=== PATIENT | female | born 1960 | race Caucasian/White ===

== ENCOUNTER 2021-01-04 08:03 | Emergency (ER) | payer OTHER, SELFPAY ==
[2021-01-04] VITALS (20 sets, daily range): BP systolic 117–196; BP diastolic 72–133; PULSE 79–97; RESP 10–22; TEMP 36.6; O2SAT 49–100; BMI 34.3
--- NOTE | 2021-01-04 08:07 | XR_ITS ---
PROCEDURE: XR ANKLE RT MIN 3V CLINICAL INDICATION: obvious fx Injury with pain and deformity COMPARISON: No exams were available for comparison FINDINGS: There is ankle fracture dislocation. Oblique fracture of the distal fibula, longitudinal fracture posterior distal tibia, avulsion fracture of the medial malleolus, there is lateral dislocation the talus by 3.8 cm. There is posterior dislocation of the talus by 2 cm. There is overlying soft tissue swelling. IMPRESSION: Ankle fracture dislocation Dictated by: Luis Miguel Kaplan MD 01/04/2021 08:31 Luis Miguel Kaplan MD in [place] 01/04/2021 08:31
[2021-01-04 08:15] LABS: Basophils # 0.1 K/mm3 (0-0.2); Basophils % 1.3 % (0.1-2.0); Eosinophils # 0.3 K/mm3 (0.0-0.4); Eosinophils % 4.1 % (0.1-12.0); Hematocrit 40.3 % (37.0-47.0); Hemoglobin 13.5 g/dL (12.2-16.2); Lymphocytes # 2.7 K/mm3 (0.7-4.5); Lymphocytes % 38.6 % (10-50); Mean Corpuscular HGB Conc 33.5 g/dL (31.8-35.4); Mean Corpuscular Hemoglobin 29.3 pg (27.0-31.2); Mean Corpuscular Volume 87.5 fl (81-99); Mean Platelet Volume 8.2 fl (7.4-10.4); Monocytes # 0.4 K/mm3 (0.1-1.0); Neutrophils # 3.6 K/mm3 (1.8-7.8); Neutrophils % 50.9 % (37.0-80.0); Platelet Count 279 K/mm3 (142-424); Red Blood Count 4.61 M/mm3 (4.20-5.40); Red Cell Distribution Width 13.9 % (11.5-17.5)
[2021-01-04 08:20] LABS: Chloride 98 mmol/L (98-107); Sodium 139 mmol/L (136-145)
[2021-01-04 08:22] LABS: Alanine Aminotransferase 26 U/L (12-78); Aspartate Amino Transferase 25 U/L (14-36); Bilirubin,Total 0.5 mg/dl (0.2-1.3); Blood Urea Nitrogen 14 mg/dl (7-17); Creatinine Clearance Estimated 95 mL/min (50-200); Estimated Glomerular Filt Rate 64 ml/min (>60); GFR (African American) 77 ML/MIN (>60)
[2021-01-04 08:23] LABS: Albumin Level 4.2 g/dl (3.5-5.0); Albumin/Globulin Ratio 1.6 (1.1-1.8); Alkaline Phosphatase 100 U/L (38-126); Anion Gap 8.9 mEq/L (5-15); Calcium 9.9 mg/dl (8.4-10.2); Carbon Dioxide 35 mmol/L (22.0-30.0); Globulin 2.6 g/dL (1.3-3.2); Glucose 121 mg/dl (74-100); Total Protein,Serum 6.8 g/dl (6.3-8.2)
[2021-01-04 08:32] LABS: Activated Partial Thrombo Time 27.7 seconds (22.8-30.6); INR 0.81 (0.9-1.1); Prothrombin Time 9.7 seconds (10.1-12.5)
--- NOTE | 2021-01-04 08:32 | PC.NURSE ---
spoke with Dr Tanner
--- NOTE | 2021-01-04 08:32 | HMH.EDGENADL ---
ED Disposition Clinical Impression: Closed right trimalleolar fracture Qualifiers: Encounter type: initial encounter Qualified Code(s): S82.851A - Displaced trimalleolar fracture of right lower leg, initial encounter for closed fracture Dislocated ankle Qualifiers: Encounter type: initial encounter Laterality: right Qualified Code(s): S93.04XA - Dislocation of right ankle joint, initial encounter Disposition: Home, Self-Care Condition on Discharge: Good Instructions: DI for Acute Pain -- Adult Prescriptions: Cyclobenzaprine HCl [Cyclobenzaprine 5mg Tab] 5 mg PO Q8HP PRN #30 tab PRN Reason: pain/spasm [id number] Ketorolac Tromethamine [Toradol 10mg tablet] 10 mg PO Q6H 5 Days #20 tab Transmission Status: Pending to [id number] Referrals: PCP,No [Primary Care Provider] - - Critical Care Critical Care Time: No Attestation: On 01/04/21, the high probability of a clinically significant, sudden or life threatening deterioration of the following system(s) required my full and direct attention, intervention and personal management. The time I documented below is in addition to time spent performing reported procedures but includes the following listed in this critical care notation. Medical Decision Making - Medical Records Medical records reviewed: Yes: I reviewed the patient's medical records. - Joe Inquiry Pt receiving controlled substance: No Vital Signs: 01/04/21 08:03 01/04/21 09:00 01/04/21 09:10 Temperature 98 F Temperature Source Oral Pulse Rate 90 86 Pulse Rate [Radial] 82 Respiratory Rate 18 16 22 Blood Pressure 165/96 H 158/88 H Blood Pressure [Right Arm] 170/86 H Blood Pressure Mean 119 111 Blood Pressure Mean [Right Arm] 114 Blood Pressure Position Blood Pressure Position [Right Arm] Sitting 02 Sat by Pulse Oximetry 98 97 98 Oxygen Delivery Method Room Air Oxygen Flow Rate (LPM) 01/04/21 09:15 01/04/21 09:16 01/04/21 09:17 Temperature Temperature Source Pulse Rate 87 Pulse Rate [Radial] Respiratory Rate 10 L Blood Pressure 196/115 H Blood Pressure [Right Arm] Blood Pressure Mean Blood Pressure Mean [Right Arm] Blood Pressure Position Sitting Blood Pressure Position [Right Arm] 02 Sat by Pulse Oximetry 99 49 L 98 Oxygen Delivery Method Nasal Cannula Non-Rebreather Simple Mask Oxygen Flow Rate (LPM) 2 10 10 01/04/21 09:19 01/04/21 09:25 01/04/21 09:47 Temperature Temperature Source Pulse Rate 95 H 94 H Pulse Rate [Radial] 89 Respiratory Rate 10 L 10 L 16 Blood Pressure 174/105 H 146/122 H Blood Pressure [Right Arm] 158/88 H Blood Pressure Mean Blood Pressure Mean [Right Arm] 111 Blood Pressure Position Sitting Sitting Blood Pressure Position [Right Arm] Sitting 02 Sat by Pulse Oximetry 98 100 97 Oxygen Delivery Method Nasal Cannula Nasal Cannula Oxygen Flow Rate (LPM) 3 2 - Lab Data Lab Results 01/04/21 08:08: WBC 7.0, RBC 4.61, Hgb 13.5, Hct 40.3, MCV 87.5, MCH 29.3, MCHC 33.5, RDW 13.9, Plt Count 279, MPV 8.2, Neut % (Auto) 50.9, Lymph % (Auto) 38.6, [place] % (Auto) 5.0, Eos % (Auto) 4.1, Baso % (Auto) 1.3, Neut # (Auto) 3.6, Lymph # (Auto) 2.7, [place] # (Auto) 0.4, Eos # (Auto) 0.3, Baso # (Auto) 0.1 01/04/21 08:08: PT 9.7 L, INR 0.81 L, APTT 27.7 01/04/21 08:08: Sodium 139, Potassium 2.9 L*, Chloride 98, Carbon Dioxide 35 H, Anion Gap 8.9, BUN 14, Creatinine 0.90, Estimated Creat Clear 95, Estimated GFR 64, Est GFR ( Amer) 77, Glucose 121 H, Calcium 9.9, Total Bilirubin 0.5, AST 25, ALT 26, Alkaline Phosphatase 100, Total Protein 6.8, Albumin 4.2, Globulin 2.6, Albumin/Globulin Ratio 1.6 01/04/21 08:08: Magnesium 2.1 01/04/21 08:30: Chlamy pneumoniae PCR Not detected, Adenovirus (PCR) Not detected, B. pertussis DNA (PCR) Not detected, Coronavirus OC43 (PCR) Not detected, Coronavirus HKU1 (PCR) Not detected, Coronavirus 229E (PCR) Not detected
[2021-01-04 08:34] LABS: Potassium 2.9 mmoL/L (3.5-5.1)
--- NOTE | 2021-01-04 08:35 | PC.NURSE ---
notified ER MD of potassium 2.9
[2021-01-04 08:43] LABS: Adenovirus,PCR Not Detected (NotDetected); Bordetella Pertussis Not Detected (NotDetected); Chlamydophila Pneumoniae, PCR Not Detected (NotDetected); Coronavirus 19, PCR Not Detected (NotDetected); Coronavirus 229E Not Detected (NotDetected); Coronavirus NL63 Not Detected (NotDetected); Coronavirus OC43 Not Detected (NotDetected); Coronovirus HKU1,PCR Not Detected (NotDetected); Human Metapneumovirus Not Detected (NotDetected); Influenza A, PCR Not Detected (NotDetected); Influenza AH1, 2009 Not Detected (NotDetected); Influenza AH1, PCR Not Detected (NotDetected); Influenza AH3,PCR Not Detected (NotDetected); Influenza B, PCR Not Detected (NotDetected); Mycoplasma Pneumoniae, PCR Not Detected (NotDetected); Parainfluenza 1, PCR Not Detected (NotDetected); Parainfluenza 2, PCR Not Detected (NotDetected); Parainfluenza 3, PCR Not Detected (NotDetected); Parainfluenza 4, PCR Not Detected (NotDetected); Respiratory Syncytial Virus Not Detected (NotDetected); Rhinovirus/Enterovirus Not Detected (NotDetected)
[2021-01-04 09:04] LABS: Magnesium 2.1 mg/dl (1.6-2.3)
--- NOTE | 2021-01-04 09:10 | PC.NURSE ---
started with sedation. pt iv patent.
--- NOTE | 2021-01-04 09:19 | XR_ITS ---
PROCEDURE: XR ANKLE RT 2V CLINICAL INDICATION: post reduction Ankle fracture COMPARISON: CR XR ANKLE RT MIN 3V from 01/04/2021 FINDINGS: There has been interval reduction of the ankle fracture dislocation. Transverse medial malleolar fracture is in good alignment. Small avulsion fracture posterior distal tibia in good alignment. Oblique fracture of the distal fibula is in good alignment with mild posterior displacement by 4 mm. IMPRESSION: Status post reduction of the ankle fracture dislocation Dictated by: Luis Miguel Kaplan MD 01/04/2021 09:36 Luis Miguel Kaplan MD in [place] 01/04/2021 09:36
--- NOTE | 2021-01-04 09:21 | PC.NURSE ---
Rad here for post reduction xray
--- NOTE | 2021-01-04 09:35 | PC.NURSE ---
pt drowsy responds to verbal stimuli.
--- NOTE | 2021-01-04 10:15 | PC.NURSE ---
Lulu called for Dr Tanner advising that ortho office will see her early next week.
--- NOTE | 2021-01-04 11:00 | PC.NURSE ---
pt resting. taking fluids, pt continues to c/o pain rt ankle
--- NOTE | 2021-01-04 12:00 | PC.NURSE ---
pt resting c/o pain rt ankle md aware
--- NOTE | 2021-01-04 13:10 | PC.NURSE ---
posterior splint, sugar tong splint applied to rt ankle
--- NOTE | 2021-01-04 13:45 | PC.NURSE ---
pt given crutches walking instructions. pt having difficulty using crutches. pt was unable to demonstrate use. pt verbalized instructions. pt was able to demonstrate NWB rt leg with walker. states she has access to walker at home
== END 2021-01-04 14:44 | disposition home or self-care (01) ==
PROVIDERS: Emergency Provider Emergency Medicine
DX: S82.391A Other fracture of lower end of right tibia, initial encounter for closed fracture (principal); S93.04XA Dislocation of right ankle joint, initial encounter; W01.0XXA Fall on same level from slipping, tripping and stumbling without subsequent striking against object, initial encounter; Y92.017 Garden or yard in single-family (private) house as the place of occurrence of the external cause; Z20.822 Contact with and (suspected) exposure to COVID-19
CPT/HCPCS: 27788; 29515; 73600; 73610; 80053; 83735; 85025; 85610; 85730; 87581; 87633; 87798; 96365; 96367; 96375; 96376; 99152; 99284; J2405

== ENCOUNTER 2021-01-06 15:15 | Day surgery (SDC) | payer OTHER, SELFPAY ==
[2021-01-06] VITALS (8 sets, daily range): BP systolic 124–158; BP diastolic 77–98; PULSE 80–94; RESP 12–18; TEMP 36.6–36.9; O2SAT 92–99; BMI 34.3
--- NOTE | 2021-01-06 14:35 | XR_ITS ---
PROCEDURE: XR ANKLE RT 2V CLINICAL INDICATION: ankle fracture; splint change after post reduction Follow-up splint placement COMPARISON: CR XR ANKLE RT MIN 3V from 01/04/2021 CR XR ANKLE RT 2V from 01/04/2021 FINDINGS: Trimalleolar fracture dislocation once again noted. The talus is once again displaced laterally and posteriorly. Longitudinal displaced fractures present at the distal fibula. Medial malleolar transverse fracture is noted with lateral displacement. Posterior distal tibial avulsion fracture present and displaced posteriorly by 15 mm. Talus is displaced posteriorly by approximately 2 cm and displaced laterally by 1 cm. There is an overlying splint in place. IMPRESSION: Status post splint placement with fracture dislocation of the ankle with interval development of lateral and posterior displacement of the talus with fractures as described above of the distal fibula, posterior distal tibia, and medial malleolus Dictated by: Luis Miguel Kaplan MD 01/06/2021 15:14 Luis Miguel Kaplan MD in [place] 01/06/2021 15:14
--- NOTE | 2021-01-06 16:59 | XR_ITS ---
PROCEDURE: XR ANKLE RT 2V CLINICAL INDICATION: ORIF RIGHT ANKLE USING C-ARM GUIDANCE COMPARISON: CR XR ANKLE RT 2V from 01/06/2021 FINDINGS: C-arm was utilized for closed reduction the right ankle fracture dislocation. There is good alignment in the AP plane on the final images. There is mild dorsal displacement of the posterior distal tibial fracture and the distal fibular fracture. Fluoroscopy time: 14 seconds IMPRESSION: Status post closed reduction ankle fracture dislocation Dictated by: Luis Miguel Kaplan MD 01/07/2021 08:02 Luis Miguel Kaplan MD in [place] 01/07/2021 08:02
--- NOTE | 2021-01-06 17:30 | HMH.ANESCL ---
[facility] Anesthesia Checklist - Structural Data Admitted From: Home Planned Operative Procedure/s: closed red r ankle Consent for Planned Operative Procedure(s) Verified: Yes - Additional verifications Anesthesia Reactions: No Hx Blood Transfusions: No Blood Transfusion Reaction: No - Airway Assessment C-Spine Mobility Assessed: Yes TMJ Mobility Assessed: Yes Dentition: Good Dentition - Neurological Assessment Level of Consciousness: Awake, Alert, Appropriate - Anesthesia Plan Anesthesia Risk discussed: Yes Anesthesia Plan: Verified ASA Class: II Anesthesia Type: General [facility] History I have reviewed the patient's past medical history: Yes Medical History: Denies:: Cancer, Diabetes Mellitus Type 1, Diabetes Mellitus Type 2, Internal Pacemaker, MRSA, Seizures *Have you ever received a pneumonia vaccine?: Yes *Have you received a flu vaccine this season?: Yes Other Medical History: Denies: Blood Transfusion Reaction Anesthesia experience/problems:: none Other Surgeries: Yes: Other. No: Pacemaker Amputation: No Fractures: Yes - *Social History Smoking Status: Current every day smoker Tobacco Type: cigarettes # Packs/Day (cigarettes): 1 Alcohol Intake: never Substance Use Type: denies use *Occupational Status:: other *Travel in the last 8 weeks: None Family Hx:: No significant family history
--- NOTE | 2021-01-06 17:31 | HMH.ANESI ---
[facility] Anesthesia Record Part I Intake, IV Amount: 500 Estimated blood loss (mL): 0 Urine output (mL): 0 Blood Pressure: 155/85 SaO2: 92 Pulse Rate: 94 Respiratory Rate: 12 Temperature: 97.8 F Patient is:: Awake, Stable Stable to PACU at:: 17:25
--- NOTE | 2021-01-06 17:37 | HMH.OPNOTE ---
Date of procedure: 01/06/21 Pre-op Diagnosis:: trimalleolar fracture-dislocation R ankle Post-op Diagnosis:: trimalleolar fracture-dislocation R ankle Procedure performed:: closed reduction + splint application R ankle fracture-dislocation Surgeon:: Arielle Tanner MD Relocation Manager(s):: Shayna Mendoza ANDROID SOFTWARE ENGINEER:: Stanford Pastor Anesthesia: LMA Estimated blood loss (mL): 0 Clinical Note:: 60-year-old female presents for initial orthopedic evaluation of an injury to the right ankle that was sustained 2 days ago when she stepped into a hole and slipped, twisting her ankle. She had immediate pain and deformity of the ankle was unable to bear weight. She was seen in the ER where fracture?dislocation was diagnosed and closed reduction performed. Post reduction x-rays were taken, but the x-rays were taken with the physician holding the ankle and no splint applied. After the splint was applied the patient had increased pain and says that she has been in severe pain in the last 2 days. No numbness or tingling of the toes. No prior injuries to or surgeries on this ankle before. History is significant for hypercholesterolemia, hypertension. She is not a smoker. BMI 34. Although the fracture was reduced well in the ER, post reduction x-rays were taken prior to splint application. I discussed the patient's case with the nurse in the ER that was present the day of the injury, and she states after reduction and splinting was performed by herself. I feel that in the interim between the reduction and splint application, the ankle redislocated. The patient is simply too swollen to fix today, and additionally has a large fracture blister medially. She will need at least another week of elevation and edema control before surgery can safely be performed. However, she needs to be reduced once more again today. I will take her to the OR this afternoon for close reduction under sedation and splint application. I did offer her the choice of sedation versus intra-articular lidocaine injection with reduction in the office, and she has chosen sedation. I discussed the risks of the procedure with the patient, including inability to reduce the ankle, propagation/worsening of the fracture, and risks of sedation including respiratory distress. The patient vocalized understanding and provided informed consent for the procedure. Operative findings:: trimalleolar fracture-dislocation R ankle Operative note:: The patient was identified in preoperative holding and the right ankle signed by myself. Consent was reviewed with the patient and all questions answered. She was then taken to the operating room, where LMA was used to administer general anesthesia. Once the patient was asleep, consent was performed, identifying the correct patient, correct procedure, and correct site. Splint was removed from the right lower extremity. Large fracture blisters were seen over the medial aspect of the ankle, which were drained using a single poke hole from an 18-gauge needle, with manual pressure expressing the clear fracture fluid. Xeroform was placed over these wounds, with a thin layer of 4 x 4 and Seble wrap. Next, C-arm was used to localize the fracture/dislocation, which was trimalleolar and classification. The ankle was reduced with longitudinal traction and upwards pressure pulled on the foot, pulling anteriorly directed force on the ankle, reducing the talus under the plafond and. Reduction was confirmed on C arm and splint applied. A well-padded splint was applied using 4 inch web roll, followed by 4 inch plaster with both a posterior mold and a stirrup. The plaster was well molded to the ankle and held until hardened. Post reduction post splinting x-rays were obtained with C arm, which confirmed good reduction/alignment of the ankle fracture. The patient was then extubated and taken to PACU in good condition. She tolerated this procedure well with no complications. Tourniquet time (mi
--- NOTE | 2021-01-06 18:01 | PC.NURSE ---
1755-pt transferred to post op at this time, vss, pt stable
[2021-01-07 11:17] VITALS: BP 145/86; PULSE 80; TEMP 36.9
--- NOTE | 2021-01-07 11:17 | HMH.ANESII ---
[facility] Anesthesia Record Part II Discharge Time: 17:55 Destination: Surgical Day Care (OP Surgery) PACU nurse assessment reviewed?: Yes Patient Condition:: Good Anesthesia Complications:: None Swallowing reflex intact?: Yes Cyanosis?: No Blood Pressure: 145/86 Pulse Rate: 80 Temperature: 98.5 F Mental Status: Alert & Oriented Pain level:: 0 Nausea and/or vomitting:: None Intake, IV Amount: 0
== END 2021-01-06 18:25 ==
LOC: RAD 16:16 → OR 01-07 12:46
PROVIDERS: PCP Internal Medicine; Visit Provider Orthopaedic Surgery
PROC: (CPT 27818; principal; 2021-01-06 16:00)
DX: S82.851A Displaced trimalleolar fracture of right lower leg, initial encounter for closed fracture (principal); Z79.899 Other long term (current) drug therapy; Z72.0 Tobacco use
CPT/HCPCS: 27818; 29515; 73600; 76000

== ENCOUNTER 2021-01-13 17:08 | Day surgery (SDC) | payer OTHER, SELFPAY ==
[2021-01-13] VITALS (16 sets, daily range): BP systolic 135–168; BP diastolic 70–90; PULSE 81–100; RESP 16–20; TEMP 36.9–42.7; O2SAT 92–97; BMI 34.3
--- NOTE | 2021-01-13 15:26 | XR_ITS ---
PROCEDURE: XR ANKLE RT MIN 3V CLINICAL INDICATION: RT ankle; IN SPLINT Fracture COMPARISON: CR XR ANKLE RT MIN 3V from 01/04/2021 CR XR ANKLE RT 2V from 01/04/2021 CR XR ANKLE RT 2V from 01/06/2021 FINDINGS: A splint is in place. Ankle fracture dislocation once again noted. There is posterior displacement of the talus and mild lateral displacement of the talus. Distal fibular fracture noted with dorsal displacement by approximately 8 mm and dorsal angulation also with mild lateral angulation of the distal fracture fragment. The ankle mortise is widened. There is posterior displacement of the talus by 2 cm and lateral displacement of the fibula by 10 mm as well as lateral displacement of the talus by 18 mm. Overall no significant change from 01/06/2021 posterior distal talus avulsion fracture is noted with posterior displacement by 11 mm. IMPRESSION: No significant change right ankle fracture dislocation with trimalleolar fracture Dictated by: Luis Miguel Kaplan MD 01/13/2021 16:38 Luis Miguel Kaplan MD in [place] 01/13/2021 16:38
--- NOTE | 2021-01-13 16:55 | XR_ITS ---
PROCEDURE: XR ANKLE RT 2V CLINICAL INDICATION: C-ARM CASE FOR RIGHT ANKLE BY DR CASTELAN Follow-up external fixation COMPARISON: CR XR ANKLE RT MIN 3V from 01/04/2021 CR XR ANKLE RT 2V from 01/04/2021 CR XR ANKLE RT 2V from 01/06/2021 CR XR ANKLE RT MIN 3V from 01/13/2021 FINDINGS: 1923 hours S/p placement of external fixator at the proximal tibia and calcaneus. There remains dorsal subluxation of the talus by approximately 10 mm and dorsal displacement the distal fibular fracture by 5 mm and dorsal displacement of the distal tibial fracture by 6 mm. Other findings:None. IMPRESSION: Status post external fixator placement for ankle fracture dislocation as described above. Dictated by: Luis Miguel Kaplan MD 01/14/2021 05:46 Luis Miguel Kaplan MD in [place] 01/14/2021 05:46
--- NOTE | 2021-01-13 18:13 | HMH.ANESCL ---
[facility] Anesthesia Checklist - Patient Identification Patient Identification: Arm Band - Structural Data Admitted From: Home Planned Operative Procedure/s: Closed reduction, application of external fixation device Right Ankle Consent for Planned Operative Procedure(s) Verified: Yes Verified Documents: Surgical Consent, History and Physical - NPO Status Verified Time NPO: 07:00 - Additional verifications Anesthesia Reactions: No Hx Blood Transfusions: No Blood Transfusion Reaction: No - Airway Assessment C-Spine Mobility Assessed: Yes (mp2) TMJ Mobility Assessed: Yes Dentition: Good Dentition - Neurological Assessment Level of Consciousness: Awake, Alert - Anesthesia Plan Anesthesia Risk discussed: Yes Anesthesia Plan: Verified ASA Class: II Anesthesia Type: General [facility] History Medical History: Reports:: Hyperlipidemia, Hypertension Denies:: Cancer, Diabetes Mellitus Type 1, Diabetes Mellitus Type 2, Internal Pacemaker, MRSA, Seizures *Have you ever received a pneumonia vaccine?: Yes *Have you received a flu vaccine this season?: Yes Other Medical History: Denies: Blood Transfusion Reaction Anesthesia experience/problems:: nac Other Surgeries: Yes: Hysterectomy-Total, Other. No: Pacemaker Amputation: No Fractures: Yes - *Social History Smoking Status: Current every day smoker Tobacco Type: cigarettes # Packs/Day (cigarettes): 1 Alcohol Intake: never Substance Use Type: denies use *Occupational Status:: disabled Housing: house *Travel in the last 8 weeks: None Family Hx:: No significant family history
[2021-01-13 18:20] LABS: Coronavirus 19 IgG Antibody Positive (Negative); Coronavirus 19 IgM Antibody Negative (Negative)
--- NOTE | 2021-01-13 19:00 | XR_ITS ---
PROCEDURE: XR ANKLE RT 2V CLINICAL INDICATION: s/p right ankle ex fix application COMPARISON: No exams were available for comparison FINDINGS: Fluoroscopy time: 1.3 minutes External fixator device with fluoroscopic guidance with proximal aspect at the proximal tibial region 2 screws in the distal aspect at the calcaneal area with improvement in the talar subluxation. Trimalleolar fracture noted with some minimal posterior subluxation of the talus. IMPRESSION: Status post external fixator device placement as described above Dictated by: Luis Miguel Kaplan MD 01/13/2021 19:25 Luis Miguel Kaplan MD in [place] 01/13/2021 19:25
--- NOTE | 2021-01-13 19:31 | PC.NURSE ---
1927-radiology at bedside
--- NOTE | 2021-01-13 19:52 | XR_ITS ---
PROCEDURE: XR ANKLE RT 2V CLINICAL INDICATION: Follow-up external fixation COMPARISON: CR XR ANKLE RT 2V from 01/04/2021 CR XR ANKLE RT 2V from 01/06/2021 CR XR ANKLE RT 2V from 01/13/2021 CR XR ANKLE RT MIN 3V from 01/13/2021 FINDINGS: 1957 hours. Lateral view the right ankle once again shows dorsal subluxation of the talus by approximately 9 mm. Distal fibular fracture and distal tib fib fracture also noted with dorsal displacement. IMPRESSION: No change fracture subluxation the ankle dorsal displacement of the talus Dictated by: Luis Miguel Kaplan MD 01/14/2021 05:37 Luis Miguel Kaplan MD in [place] 01/14/2021 05:37
--- NOTE | 2021-01-13 19:57 | PC.NURSE ---
1943-pt transferred to post op at this time, vss, pt stable, will continue to monitor
--- NOTE | 2021-01-13 20:01 | SUR.PHASEII ---
1946-pt reports pain increasing at this time to 06/06- no po medication orders given per MD- notified MD that pt's pain was increasing-MD ordered for pt to have percocet 10mg po xonce prior to discharge and for the lateral xray to right ankle to be repeated 1953-med w/Percocet 10mg PO xonce, pt rates pain 06/06, vss will continue to monitor 1958-radiology at bedside to repeat lateral xray to right ankle, pt eating pb and crackers and drinking alessandra mist w/out difficulty
--- NOTE | 2021-01-13 22:10 | HMH.OPNOTE ---
Date of procedure: 01/13/21 Pre-op Diagnosis:: R ankle trimalleolar fracture-dislocation Post-op Diagnosis:: R ankle trimalleolar fracture-dislocation Procedure performed:: RIGHT LOWER EXTREMITY: 1) closed reduction of ankle fracture-dislocation 2) uniplanar external fixator application Surgeon:: Arielle Tanner MD Administrative Staff Supervisor(s):: PJ Walker SHOT LIGHTER:: Tacos Dugan Anesthesia: GETA Estimated blood loss (mL): 5 Clinical Note:: 60-year-old female with right ankle fracture?dislocation, date of injury 01/04/2021; reduced in ER that day with loss of reduction presumed to have occurred prior to splint application. Reduced once more by myself 01/06/21; splinted with posterior mold and stirrup. Reduction has failed once more, with dislocation of the talus posteriorly. Given the repeat instability of the ankle and the failure of the talus is a centered under the plafond, which is adding to prolong soft tissue swelling, I recommend stabilization with close reduction and external fixator placement. Her fracture needs to be fixed soon as possible, and I believe the posterior malleolar fracture does need to be fixed in addition to the distal fibula and medial malleolus. However, her soft tissue envelope is in poor condition and is not amenable to surgery at this time. She has severe soft tissue swelling with fracture blisters across both anterior and medial aspects of the ankle. External fixator application will allow the fracture to remain reduced/stabilized and allow the soft tissues to cool off prior to definitive treatment. The risks of ex-fix application were discussed with the patient and her brother, who is at bedside; risks of bleeding, infection, persistent pain/swelling, and risks of anesthesia were discussed. The patient vocalized understanding, informed consent obtained. Will proceed to the OR urgently today. Operative findings:: Glendora Valdez 3 ex-fix system was used, with the following components: pins: tibia = 5 x 180mm, 5 x 200mm apex pins (2) calcaneus = 5 x 250mm transfix pin (1) bars: 8 x 500mm (2) from tibia to calcaneus Operative note:: The patient was identified in preoperative holding and the right leg signed by myself; the ankle was still splinted. I reviewed the consent with the patient and her family and answered all questions. She was then taken to the operating room and placed supine on the OR table. 900mg clindamycin were infused intravenously and general anesthesia induced. Once the patient was asleep, the splint was removed from the right ankle and the right leg prepped and draped in the usual sterile fashion from the upper thigh to the toes. Timeout was performed, identifying the correct patient, correct procedure, and correct site. The procedure was begun by using the C arm to identify the fracture site at the right ankle. Trimalleolar fracture-dislocation was confirmed. A Brainly Valdez 3 external fixator system was used for this case. The first pin placed was a calcaneus pin, which was a 5 x 250 mm transfix pin, which was centrally threaded. This was held over the skin over the lateral calcaneus until the desired starting point was found, at which time the pin was used to frazier the skin and placed under power through the center of the calcaneus. Once the pin had been completely fixed with the central threads through the middle of the calcaneus, it was attached from the power source. Next 2 pins were placed in the proximal tibia, each measuring 5mm diameter, one 180 mm long and the other 200mm long. These were distally threaded apex pins and were placed around 3 to 4 cm apart in the proximal tibia, well distal to the tubercle and far below the capsule so as not to be placed intra-articularly. These were placed under power, also under direct visualization with C arm, and were started just medial to the tibial crest over the anterior tibia. They were placed bicortically. Once both tibial pins had been placed, inga
== END 2021-01-13 20:26 | disposition home or self-care (01) ==
LOC: SDC 17:09
PROVIDERS: PCP Internal Medicine; Visit Provider Orthopaedic Surgery
PROC: (CPT 27818; principal; 2021-01-13 18:00)
DX: S82.851A Displaced trimalleolar fracture of right lower leg, initial encounter for closed fracture (principal); W17.2XXA Fall into hole, initial encounter; Z79.899 Other long term (current) drug therapy
CPT/HCPCS: 27818; 20690; 73600; 73610; 76000; 86328; 96374; C1713; J2405

== ENCOUNTER → 2021-01-20 13:52 | Outpatient (CLI) | payer OTHER, SELFPAY ==
--- NOTE | 2021-01-20 13:56 | CT_ITS ---
PROCEDURE: CT ANKLE RT WO CON CLINICAL HISTORY: RT ankle fracture/preoperative planning COMPARISON: CR XR ANKLE RT 2V from 01/13/2021 TECHNIQUE: Axial images obtained with sagittal and coronal reformats. All CT scans at the facility use one or more dose reduction, viz: automated exposure control, ma/kV adjustment per patient size (including targeted exams where dose is matched to indication, i.e. head), or iterative reconstruction technique. FINDINGS: There is a trimalleolar fracture. Mildly displaced fracture involves the distal fibula 2.8 cm proximal to the tip of the fibula with 8 mm lateral and 5 mm posterior displacement of the distal fracture fragment. Transverse fracture involves the base of the medial malleolus with 3 mm lateral displacement. Comminuted longitudinal oriented fracture involves the posterior distal tibia with 5 mm dorsal displacement. The talus is displaced posteriorly by 8 mm the and laterally by 8 mm. There is diffuse soft tissue swelling. The ankle mortise is widened. There is diffuse soft tissue swelling about the ankle. Artifact is present from external fixator device within the body of the calcaneus. A small calcific density is present along the anterior aspect of the distal tibia and may represent a small avulsion displaced avulsion fragment from the medial malleolar fracture. IMPRESSION: Displaced trimalleolar fracture as described above with widened ankle mortise with posterior and lateral displacement of the talus with associated soft tissue swelling. Please see above for details Dictated by: Luis Miguel Kaplan MD 01/21/2021 09:11 Luis Miguel Kaplan MD in [place] 01/21/2021 09:11
== END ==
PROVIDERS: PCP Internal Medicine; Visit Provider Orthopaedic Surgery
DX: S82.851A Displaced trimalleolar fracture of right lower leg, initial encounter for closed fracture (principal)
CPT/HCPCS: 73700

== ENCOUNTER 2021-02-06 07:55 | Inpatient (IN) | payer OTHER, SELFPAY ==
[2021-02-06] VITALS (28 sets, daily range): BP systolic 86–188; BP diastolic 45–98; PULSE 90–170; RESP 19–46; TEMP 36.6–36.9; O2SAT 89–97; BMI 34.3; BMI 33.0
--- NOTE | 2021-02-06 | IR_ITS ---
APPROVED REPORT Patient Location: Inpatient Flight Nurse: EDD Doe RT (R) PROCEDURES Left heart catheterization Left ventriculogram Selective coronary angiogram Placement of intra-aortic balloon pump INDICATION Acute anterior myocardial infarction, Cardiogenic shock accompanied by respiratory failure Informed consent was obtained prior to the procedure. COMPLICATIONS None Estimated Blood Loss: less than 10ml TECHNIQUE 1% lidocaine used to anesthetize the right groin, the right femoral artery was accessed via the Salinger technique and a 5 Salvadorean sheath was placed in the right femoral artery. A JL4 JR4 catheter was used to perform left heart catheterization left ventriculogram and selective coronary angiography. At the end of the procedure it was decided to proceed with the emergency balloon pump due to patient's hypoxemia respiratory extremis acute systolic congestive heart failure accompanied by large left pleural effusion. A balloon pump catheter was opened and placed in the sterile field and hooked up to the intra-aortic balloon pump machine. The 5 Salvadorean sheath was exchanged for the 8 Salvadorean balloon pump sheath. The balloon pump was sterilely prepped and ready to be inserted into the patient when it was decided at the last second to see if Dr. Alves was available for a stat thoracentesis. Patient was found to have nonocclusive coronary artery disease with severe acute LV dysfunction with a large anterior apical and inferoapical akinetic area consistent with acute Takotsubo cardiomyopathy. Her left ventricular end-diastolic pressure was critically elevated at 60 mmHg. Initially a balloon pump was going to be placed to help unload the left ventricle however if Dr. Alves was available for staff thoracentesis we could avoid heparin probable endotracheal intubation and balloon pump. Dr. Alves was paged stat to the Television Install[employer]per and he immediately responded and graciously proceeded with emergent thoracentesis which produced 1400 cc of fluid. Patient was also given 80 mg of IV Lasix and during the thoracentesis was able to diurese 1 L of urine. Because patient had to be set up it was decided to place a Perclose device prior to the thoracentesis therefore the groin was reprepped gloves were changed the sheath was removed and good hemostasis was achieved using Perclose device. At this point the sterile balloon pump which was set up and ready to be installed into the patient was discarded. Upon removal of the large volume thoracentesis and the 1 L of diuresis patient had significant improvement and we were able to avoid endotracheal intubation, the heparin drip and the balloon pump. Once stable patient was transferred to the postop holding area for further postop care with plans to admit to the stepdown unit ANGIOGRAPHIC RESULTS The left main artery Normal The left anterior descending artery Normal The circumflex artery Normal The right coronary artery Normal The [place] ventriculogram reveals Severe left ventricular dilatation with large anterior apical and inferoapical akinetic aneurysmal segment with ejection fraction of 15% The left ventricular end-diastolic pressure Critically elevated at 60 mmHg IMPRESSION Normal coronary arteries Acute Takotsubo cardiomyopathy/acute stress cardiomyopathy Acutely decompensated congestive heart failure likely causing the rare isolated left pleural effusion Severe left ventricular dysfunction Severely elevated LVEDP Preparation for intra-aortic balloon pump which was aborted at the last second just prior to insertion into the patient PLAN 1. Supportive care 2. ZOHRA inhibitors for afterload reduction 3. Avoid beta-blockers at this
--- NOTE | 2021-02-06 | US_ITS ---
PROCEDURE: US THORACENTESIS CLINICAL INDICATION: COMPARISON: No exams were available for comparison FINDINGS: Moderate left pleural effusion is noted. The thoracentesis procedure was performed by IMPRESSION: Thoracentesis procedure was performed by Dr. Lo Dictated by: Mireille Tomlin 02/07/2021 10:30 Mireille Tomlin in [place] 02/07/2021 10:30
--- NOTE | 2021-02-06 08:00 | ECG_ITS ---
APPROVED REPORT Exam: Resting ECG HR:129 bpm ECG Measurements Heart Rate 129 AXES NM 164 P 40 QRSd 62 QRS 6 QT 252 T -27 QTc 369 Conclusion Undetermined rhythm Low voltage QRS Nonspecific ST and T wave abnormality Abnormal ECG Electronically signed by : Ernesto Peacock, 02/08/2021 11:39:19
--- NOTE | 2021-02-06 08:07 | PC.NURSE ---
called respiratory for abg and bipap
--- NOTE | 2021-02-06 08:10 | HMH.EDGENADL ---
ED Disposition Clinical Impression: Elevated troponin, Recurrent left pleural effusion Respiratory failure with hypoxia Qualifiers: Chronicity: acute Qualified Code(s): J96.01 - Acute respiratory failure with hypoxia Chest pain Qualifiers: Chest pain type: unspecified Qualified Code(s): R07.9 - Chest pain, unspecified Disposition: Admitted As Inpatient Condition on Discharge: Serious - Critical Care Critical Care Time: No Attestation: On 02/06/21, the high probability of a clinically significant, sudden or life threatening deterioration of the following system(s) required my full and direct attention, intervention and personal management. The time I documented below is in addition to time spent performing reported procedures but includes the following listed in this critical care notation. Medical Decision Making - Medical Records Medical records reviewed: Yes: I reviewed the patient's medical records. MR Comment: Reviewed discharge summary from [facility] portal, patient was admitted 01/25/2021 through 02/05/2021. She was admitted there for repair of her right ankle fracture after 2 surgical repairs at this facility. The first was a closed reduction, second was external fixator. She was unhappy with her treatment here and is referred to [facility] for further treatment. Course there was complicated by hypoxic respiratory failure, fever, suspected chemical aspiration pneumonia, atrial fibrillation, left pleural effusion status post thoracentesis, possible seizure. Had echocardiogram, CTA. Reviewed final orthopedic clinic note from Dr. Donohue from this facility. - Joe Inquiry Pt receiving controlled substance: No Vital Signs: 02/06/21 07:55 02/06/21 08:30 02/06/21 08:35 Temperature 98.4 F Temperature Source Oral Pulse Rate 123 H Pulse Rate [Right] 132 H Respiratory Rate 30 H 22 Blood Pressure 157/94 H Blood Pressure [Right Arm] 188/81 H Blood Pressure Mean [Right Arm] 116 02 Sat by Pulse Oximetry 95 97 92 L Oxygen Delivery Method Nasal Cannula Nasal Cannula Nasal Cannula Oxygen Flow Rate (LPM) 5 4 5 - Lab Data Lab Results 02/06/21 08:11: Specimen Source Left radial, O2 % 5 lpm nc, ABG pH 7.50 H, ABG pCO2 28.7 L, ABG pO2 105.6 H, ABG HCO3 21.9 L, ABG Total CO2 22.8 L, ABG O2 Saturation 98, ABG Base Excess -1.3, Luis Miguel Test Acceptable 02/06/21 08:12: Sodium 134 L, Potassium 4.4, Chloride 99, Carbon Dioxide 23, Anion Gap 16.4 H, BUN 9, Creatinine 0.70, Estimated Creat Clear 122, Estimated GFR 85, Est GFR ( Amer) 103, Glucose 254 H, Calcium 9.3, Total Bilirubin 0.8, AST 50 H, ALT 32, Alkaline Phosphatase 193 H, Troponin I 1.30 H, Total Protein 7.3, Albumin 3.8, Globulin 3.5 H, Albumin/Globulin Ratio 1.1 02/06/21 08:12: Lactate 4.8 H 02/06/21 08:12: WBC 13.3 H, RBC 3.80 L, Hgb 10.4 L, Hct 33.4 L, MCV 87.9, MCH 27.3, MCHC 31.1 L, RDW 14.2, Plt Count 829 H, MPV 7.9, Neut % (Auto) 83.5 H, Lymph % (Auto) 10.2, Boundary % (Auto) 3.9, Eos % (Auto) 1.7, Baso % (Auto) 0.8, Neut # (Auto) 11.1 H, Lymph # (Auto) 1.4, Boundary # (Auto) 0.5, Eos # (Auto) 0.2, Baso # (Auto) 0.1 02/06/21 08:12: NT-Pro-B Natriuret Pep 6140 H Result diagrams: 02/06/21 08:12 02/06/21 08:12 Orders (Tests/Meds): ED MEDICATIONS Discontinued Medications Generic Name Dose Route Start Last Admin Trade Name Shyamq PRN Reason Stop Dose Admin Albuterol/Ipratropium 3 ml 02/06/21 08:13 02/06/21 08:35 Ipratropium/Albuterol 3 Ml Neb IH 02/06/21 08:14 3 ml ONCE ONE Administration Aspirin 324 mg 02/06/21 08:57 02/06/21 09:00 Aspirin 81mg Chewable Tablet PO 02/06/21 08:58 324 mg ONCE ONE Administration Methylprednisolone Sodium Succinate 125 mg 02/06/21 08:12 02/06/21 08:25 Methylprednisolone Sod Succ 125mg Vial IV 02/06/21 08:13 125 mg ONCE ONE Administration ORDERS Category Date Time Status Consult to Cardiology [CONS] Routine Cons 02/06/21 08:55 Active Covid-19 Aleksandr
--- NOTE | 2021-02-06 08:12 | XR_ITS ---
PROCEDURE: XR CHEST PORTABLE CLINICAL HISTORY: soa COMPARISON: No exams were available for comparison FINDINGS: There is moderate to large left pleural effusion with adjacent compressive atelectasis. Background of chronic interstitial changes. Right basal atelectasis. Cardiac margins are obscured by the presence of the left pleural effusion. Vascular calcification is noted. Visualized osseous structures are unremarkable. IMPRESSION: Moderate to large left effusion with adjacent compressive atelectasis. Right basal atelectasis. Dictated by: Mireille Tomlin 02/06/2021 08:32 Mireille Tomlin in [place] 02/06/2021 08:32
--- NOTE | 2021-02-06 08:21 | PC.NURSE ---
resp here for abg
[2021-02-06 08:29] LABS: Basophils # 0.1 K/mm3 (0-0.2); Basophils % 0.8 % (0.1-2.0); Eosinophils # 0.2 K/mm3 (0.0-0.4); Eosinophils % 1.7 % (0.1-12.0); Hematocrit 33.4 % (37.0-47.0); Hemoglobin 10.4 g/dL (12.2-16.2); Lymphocytes # 1.4 K/mm3 (0.7-4.5); Lymphocytes % 10.2 % (10-50); Mean Corpuscular HGB Conc 31.1 g/dL (31.8-35.4); Mean Corpuscular Hemoglobin 27.3 pg (27.0-31.2); Mean Corpuscular Volume 87.9 fl (81-99); Mean Platelet Volume 7.9 fl (7.4-10.4); Monocytes # 0.5 K/mm3 (0.1-1.0); Monocytes % 3.9 % (1.7-9.3); Neutrophils # 11.1 K/mm3 (1.8-7.8); Neutrophils % 83.5 % (37.0-80.0); Platelet Count 829 K/mm3 (142-424); Red Cell Distribution Width 14.2 % (11.5-17.5); White Blood Count 13.3 K/mm3 (4.8-10.8)
[2021-02-06 08:36] LABS: Alanine Aminotransferase 32 U/L (12-78); Albumin Level 3.8 g/dl (3.5-5.0); Albumin/Globulin Ratio 1.1 (1.1-1.8); Alkaline Phosphatase 193 U/L (38-126); Anion Gap 16.4 mEq/L (5-15); Aspartate Amino Transferase 50 U/L (14-36); Bilirubin,Total 0.8 mg/dl (0.2-1.3); Blood Urea Nitrogen 9 mg/dl (7-17); Calcium 9.3 mg/dl (8.4-10.2); Carbon Dioxide 23 mmol/L (22.0-30.0); Chloride 99 mmol/L (98-107); Creatinine Clearance Estimated 122 mL/min (50-200); Estimated Glomerular Filt Rate 85 ml/min (>60); GFR (African American) 103 ML/MIN (>60); Globulin 3.5 g/dL (1.3-3.2); Glucose 254 mg/dl (74-100); Potassium 4.4 mmoL/L (3.5-5.1); Sodium 134 mmol/L (136-145); Total Protein,Serum 7.3 g/dl (6.3-8.2)
[2021-02-06 08:43] LABS: Lactic Acid 4.8 mmol/L (0.7-2.1)
[2021-02-06 08:48] LABS: ABG Base Excess -1.3 mmol/L (-2.4-2.3); ABG HCO3 21.9 mmhg (22.0-26.0); ABG Oxygen Saturation 98 % (90-100); ABG PCO2 28.7 mmhg (35.0-45.0); ABG PO2 105.6 mmhg (80-100); ABG TCO2 22.8 mmhg (23-27)
[2021-02-06 08:50] LABS: Allen's Test Acceptable; Source Left Radial
--- NOTE | 2021-02-06 08:52 | PC.NURSE ---
Critical trop 1.30, md aware.
--- NOTE | 2021-02-06 09:10 | PC.NURSE ---
MD MADE AWARE OF CRITICAL LABS RELATED TO POSSIBLE NEED FOR SEPSIS BOLUS. MD REPORTED TO WAIT FOR CARDIOLOGY TO BE CONSULTED PRIOR TO INITIATING A SEPSIS BOLUS. CARDIOLOGY HAS BEEN NOTIFIED FOR A NEED OF A CONSULT
--- NOTE | 2021-02-06 09:11 | PC.NURSE ---
Called Dr Bravo for soncult on patient
--- NOTE | 2021-02-06 09:15 | PC.NURSE ---
bipap not needed at this time per MD after pt improvement
[2021-02-06 09:20] LABS: NT Pro Brain Natriuretic Pep. 6140 pg/mL (0-125)
--- NOTE | 2021-02-06 09:21 | PC.NURSE ---
Dr Pena speaking with Dr Bravo.
--- NOTE | 2021-02-06 09:35 | PC.NURSE ---
Pt placed in gown. Discussed with pt about heart cath and the plan. Consent obtained, placed with chart.
--- NOTE | 2021-02-06 09:41 | PC.NURSE ---
Belonging placed in belonging bag and placed with pt for transfer
--- NOTE | 2021-02-06 09:42 | PC.NURSE ---
speaking with Sharif Godoy for admission
--- NOTE | 2021-02-06 10:29 | PC.NURSE ---
Ceasar from production laborer here for pt.
--- NOTE | 2021-02-06 10:32 | P.CONPHA_ITS ---
[facility] Pharmacy VTE Monitoring - Patient Demographics Admission date: 02/06/21 Report Date: 02/06/21 Time: 10:32 Allergies/Adverse Reactions: Patient Allergies ceftriaxone [From Rocephin] Allergy (Verified 02/06/21 08:21) Penicillins Allergy (Verified 01/13/21 17:30) Height: 1.63 m Weight: 90.718 kg Patient Problems: Current Active Problems Respiratory failure with hypoxia (Acute) Elevated troponin (Acute) Recurrent left pleural effusion (Acute) Chest pain (Acute) - VTE Risk Labs: VTE Related Lab Results Hgb 10.4 g/dL (12.2-16.2) L 02/06/21 08:12 Hct 33.4 % (37.0-47.0) L 02/06/21 08:12 Plt Count 829 K/mm3 (142-424) H 02/06/21 08:12 BUN 9 mg/dl (7-17) 02/06/21 08:12 Creatinine 0.70 mg/dl (0.52-1.04) 02/06/21 08:12 Estimated Creat Clear 122 mL/min (50-200) 02/06/21 08:12 - Prophylaxis VTE Prophylaxis Ordered?: Yes Types of VTE Prophylaxis: TEDS Knee High Location of Applied Device: Bilateral Lower Extremeties
--- NOTE | 2021-02-06 10:33 | HMH.CNCARD ---
<Pamela Watkins - Last Filed: 02/06/21 11:09> History of Present Illness Consult date: 02/06/21 Requesting physician: Scooter Pena Consult reason: chest pain, shortness of breath Chief complaint: SOA History of present illness: This is a 60 year old white female brought into the ED via ambulace for SOA. Pt states that she was admitted to [facility] for 2-3 weeks for a crush injury to the RLE. She had surgery for this injury and is in a ortho boot. she states she was released from [facility] yesterday. She states she has been having SOA and pressure in the center of her chest since being admitted to [facility]. it got worse once she was released from [facility] and got severe. this radiates to her back. severe pressure. she cannot lie flat. she had runs of PAfib while admitted to [facility]. She can barely breathe when talking. she states she feels like she is dying. the pressure in her chest is associated with nausea which started this morning, SOA and diaphoresis. Pt is tachycardic, tachypneic, and hypertensive as well as diaphoretic. she complains of heart racing and feels like she is in afib. [facility] History I have reviewed the patient's past medical history: Yes Medical History: Reports:: Atrial Fibrillation, Chronic Obstructive Pulmonary Disease (COPD), Hyperlipidemia, Hypertension Denies:: Cancer, Diabetes Mellitus Type 1, Diabetes Mellitus Type 2, Internal Pacemaker, MRSA, Seizures *Have you ever received a pneumonia vaccine?: Yes *Have you received a flu vaccine this season?: No Other Medical History: Denies: Blood Transfusion Reaction Other Surgeries: Yes: Hysterectomy-Total, Other. No: Pacemaker Amputation: No Fractures: Yes - *Social History Smoking Status: Current every day smoker Tobacco Type: cigarettes # Packs/Day (cigarettes): 1 Alcohol Intake: never Substance Use Type: denies use *Occupational Status:: disabled Housing: house *Travel in the last 8 weeks: None Family Hx:: No significant family history Meds Home Medications Medication Instructions Recorded Confirmed Type Atorvastatin Calcium [Lipitor 10mg 10 mg PO HS 01/04/21 02/06/21 History Tablet*] Gabapentin [Gabapentin 300mg Cap] 100 mg PO TID 01/04/21 02/06/21 History Losartan/Hydrochlorothiazide 1 tab PO DAILY 01/04/21 02/06/21 History [Losartan-Hctz 100-25 mg Tab] Oxycodone HCl/Acetaminophen 1 each PO Q6H PRN #20 tab 01/04/21 02/06/21 Rx [Oxycodone-Acetaminophen 5-325] Potassium Chloride 10 meq PO DAILY 01/04/21 02/06/21 History Acetaminophen 500 mg PO Q6H PRN 02/06/21 02/06/21 History Duloxetine HCl 60 mg PO DAILY 02/06/21 02/06/21 History Ibuprofen 400 mg PO Q6H PRN 02/06/21 02/06/21 History Lansoprazole 30 mg PO DAILY 02/06/21 02/06/21 History Metaxalone 800 mg PO Q6H 02/06/21 02/06/21 History Sennosides/Docusate Sodium 1 each PO BID 02/06/21 02/06/21 History [Senexon-S 50-8.6 mg Tablet] Tiotropium [place] [Spiriva 4 gm IH DAILY 02/06/21 02/06/21 History Respimat] methocarbamoL [Methocarbamol] 750 mg PO Q6H PRN 02/06/21 02/06/21 History Allergies Allergy/AdvReac Type Severity Reaction Status Date / Time Sulfa (Sulfonamide Allergy Intermediate Rash Verified 02/06/21 13:19 Antibiotics) ceftriaxone [From Rocephin] Allergy Verified 02/06/21 08:21 Penicillins Allergy Verified 01/13/21 17:30 Exam Vital signs and Labs for Last 24 Hours: Temp Pulse Resp BP Pulse Ox 98.4 F 113 H 24 151/92 H 92 L 02/06/21 07:55 02/06/21 09:34 02/06/21 09:34 02/06/21 09:34 02/06/21 09:34 Laboratory Results - last 24 hr 02/06/21 08:11: Specimen Source Left radial, O2 % 5 lpm nc, ABG pH 7.50 H, ABG pCO2 28.7 L, ABG pO2 105.6 H, ABG HCO3 21.9 L, ABG Total CO2 22.8 L, ABG O2 Saturation 98, ABG Base Excess -1.3, Luis Miguel Test Acceptable 02/06/21 08:12: Sodium 134 L, Potassium 4.4, Chloride 99, Carbon Dioxide 23, Anion Gap 16.4 H, BUN 9, Creatinine 0.70, Estimated Creat Clear 122, Estimated GFR 85, Est GFR ( Amer) 103, Glucose 254 H, Calcium 9.3, Total Bilirubin 0
--- NOTE | 2021-02-06 11:06 | CA_ITS ---
APPROVED REPORT EXAM: Comprehensive 2D, Doppler, and color-flow Echocardiogram Gi Technician: [id number] Enamorado, RVS Ht: 5 ft 4 in Wt: 200lbs BSA: 1.96 BP: 158/90 mmHg Indications: Pleural effusion, COPD, CP, SOA, smoker Echo Enhancing Agent Comments: Technically difficult exam -Patient in constant motion seated upright throughout 2D Dimensions IVSd 0.95 cm LVEF (Visual) 37.90 % PWd 0.83 cm LVDd 4.75 cm LVDs 3.88 cm M-Mode Dimensions LA Diam 3.43 cm (1.9-4.0) Ao Diam 3.20 cm (2.0-3.7) EPSs 0.61 cm LV Diastology E Decel Time 70.00 (160-240 msec) E/A Ratio 1.95 MED E' 6.20 (< 7 cm/sec) MED A' 9.90 cm/s E'/MED E' Ratio 17.89 (>14) LAT E' 12.50 (<10 cm/sec) LAT A' 13.80 cm/s E/LAT E' Ratio 8.87 (>14) Aortic Valve AO Peak GR. 4.70 mmHg Mitral Valve MV E Max Russell. 111.00 (40-130 cm/s) MV A Velocity 57.00 (40-130 cm/s) E/A Ratio 1.95 MV Decel. Time 70.00 (160-240 ms) MV PHT 21.00 ms Pulmonary Valve PV Peak Velocity 101.00 (50-150 cm/s) Tricuspid Valve TR P. Velocity 260.00 cm/s RAP Estimate 10.00 mmHg RVSP 37.10 mmHg Left Ventricle Left atrium is mildly enlarged, left ventricle is normal size, there is mild concentric left ventricular hypertrophy, there is severely reduced left ventricular systolic function, visually estimated ejection fraction approximately 25%, there is marked hypokinesis involving mid to distal septum, anterior, apex and anterior apical wall. Diastolic parameters are inconclusive. Right Ventricle Right atrium and right ventricle are normal size and contractility. Aortic Valve Aortic valve is minimally thickened and fibrosed, there is no aortic stenosis or aortic insufficiency. Mitral Valve Mitral valve leaflets are minimally thickened, there is mild mitral regurgitation. Tricuspid Valve Tricuspid grossly normal, there is mild tricuspid regurgitation, tricuspid regurgitation jet velocity is inadequate for calculation of the right ventricular systolic pressure. Pulmonic Valve Pulmonic valve is poorly visualized. Great Vessels Aortic root is normal size. Pericardium No significant pericardial effusion noted. Conclusion 1. Mildly enlarged left atrium, normal left ventricular size, mild concentric left ventricular hypertrophy, severely reduced left ventricular systolic function, visually estimated ejection fraction 25% with multiple segmental wall motion abnormality as described above. 2. Mild mitral and tricuspid regurgitation. 3. No significant pericardial effusion noted. Electronically signed by : Malcolm Olmos, 02/06/2021 14:52:28
[2021-02-06 12:02] LABS: ABG Base Excess -0.8 mmol/L (-2.4-2.3); ABG HCO3 24.7 mmhg (22.0-26.0); ABG Oxygen Saturation 91 % (90-100); ABG PCO2 44.7 mmhg (35.0-45.0); ABG PH 7.36 mmol/L (7.35-7.45); ABG PO2 63.3 mmhg (80-100); ABG TCO2 26.1 mmhg (23-27)
[2021-02-06 12:03] LABS: Allen's Test N; Oxygen 100 %; Source A LINE
[2021-02-06 12:21] LABS: Reflex Lactic Add Lactic Reflex
[2021-02-06 12:29] LABS: Microscopic, Urine URINE MICROSCOPIC (MICROSCOPIC)
[2021-02-06 12:55] LABS: Appearance,Urine CLEAR (Clear); Bilirubin,Urine Negative (Negative); Blood, Urine TRACE-I (Negative); Color,Urine YELLOW (Yellow); Glucose,Urine (UA) Negative (Negative); Ketones,Urine 2+ (Negative); Leukocyte Esterase,Urine Negative (Negative); Nitrate,Urine Negative (Negative); PH,Urine 6.5 (5.0-8.5); Protein,Urine 1+ (Negative); Specific Gravity, Urine 1.025 (1.005-1.030); Urobilinogen,Urine 0.2 EU/dl (0.2)
[2021-02-06 12:57] LABS: Squamous Epithelial Cell,Urine Occasional #/hpf (0-5)
--- NOTE | 2021-02-06 13:11 | XR_ITS ---
PROCEDURE: XR CHEST PORTABLE CLINICAL HISTORY: Post Thora COMPARISON: CR XR CHEST PORTABLE from 02/06/2021 FINDINGS: Mild cardiomegaly is noted. Central pulmonary vasculature is within normal limits. There is decrease in the left-sided pleural effusion with adjacent compressive atelectasis compared to the prior study. No lobar consolidation or pneumothorax. No acute bony abnormalities. IMPRESSION: Decrease in the size of the left pleural effusion compared to the prior study. Dictated by: Mireille Tomlin 02/07/2021 10:57 Mireille Tomlin in [place] 02/07/2021 10:57
--- NOTE | 2021-02-06 13:12 | HMH.PROC ---
[facility] Procedure Note Procedure Note:: Left thoracentesis: Pulmonary was called as concern for potential decompensation given large left-sided pleural effusion in the setting of her Takotsubo cardiomyopathy. Patient was sedated and the procedure performed in emergent fashion no consent was obtained. A time out was performed and the chest x-ray was reviewed, the appropriate side was confirmed and marked. My hands were washed immediately prior to the procedure. I wore a surgical cap, mask with protective eyewear, sterile gown and sterile gloves throughout the procedure. Patient was patient upright with the help of the nursing staff. The patient was prepped and draped in a sterile manner using chlorhexidine scrub after the appropriate level was percussed and confirmed by ultrasound. 1% lidocaine was used to anesthesize the skin, subcutaneous tissue, superior aspect of the rib periosteum and parietal pleura. A finder needle was then introduced over the superior aspect of the rib to locate the pleural fluid. A 10-blade scalpel was used to gordo the skin at the insertion site. The [id number] needle was then introduced through the skin incision into the pleural space using negative aspiration pressure and the red colometric indicator to confirm appropriate positioning of the needle. The thoracentesis catheter was then threaded without difficulty. 1400 ml of straw colored fluid was removed without difficulty. The catheter was then removed. No immediate complications were noted during the procedure. A post-procedure chest x-ray is pending at the time of this note. The fluid will be sent for studies routine studies along with cytology estimated blood loss is 5cc. Patient tolerated the procedure well with no complications. We will follow with repeat chest x-ray and pleural fluid studies. Patient was also initiated on DuoNebs every 6 hours scheduled along with ceftriaxone and azithromycin for possible community-acquired pneumonia pending work-up.
--- NOTE | 2021-02-06 13:40 | PC.WOUNDNOTE ---
right ankle. Lateral 10cm long. Medial was 18cm long.
[2021-02-06 13:46] LABS: RBC,Body Fluid < 10 cells/uL (< 10 X 10^3); TNC,Body Fluid 1065 cells/uL (< 1000)
[2021-02-06 13:47] LABS: Appearance,Body Fld. Hazy; Source, Body Fld. Pleural Fluid; Volume,Body Fld. 62 mL
[2021-02-06 14:01] LABS: Mononuclear WBCs,Body Fluid 78 %; Polynuclear WBC,Body Fluid 22 %
--- NOTE | 2021-02-06 14:03 | PC.NURSE ---
BP 114/69. Nitro gtt decreased to 10mcg/min (3mL/hr).
[2021-02-06 15:13] LABS: Chloride 96 mmol/L (98-107); Potassium 3.4 mmoL/L (3.5-5.1); Sodium 136 mmol/L (136-145)
[2021-02-06 15:15] LABS: Alanine Aminotransferase 28 U/L (12-78); Blood Urea Nitrogen 9 mg/dl (7-17); Creatinine Clearance Estimated 118 mL/min (50-200); Estimated Glomerular Filt Rate 85 ml/min (>60); GFR (African American) 103 ML/MIN (>60)
[2021-02-06 15:16] LABS: Albumin Level 3.9 g/dl (3.5-5.0); Albumin/Globulin Ratio 1.1 (1.1-1.8); Alkaline Phosphatase 209 U/L (38-126); Anion Gap 13.4 mEq/L (5-15); Aspartate Amino Transferase 42 U/L (14-36); Bilirubin,Total 0.6 mg/dl (0.2-1.3); Calcium 9.2 mg/dl (8.4-10.2); Carbon Dioxide 30 mmol/L (22.0-30.0); Globulin 3.6 g/dL (1.3-3.2); Glucose 177 mg/dl (74-100); Total Protein,Serum 7.5 g/dl (6.3-8.2)
[2021-02-06 15:24] LABS: Lactate Dehydrogenase 236 U/L (313-618)
--- NOTE | 2021-02-06 16:30 | PC.NURSE ---
BP 145/86. Nitro gtt increased to 20mcg/min (6mL/hr).
[2021-02-06 16:53] LABS: POC Glucose,Bedside 164 (70-110)
--- NOTE | 2021-02-06 17:00 | PC.NURSE ---
1704: Notified Dr. Bravo that pt's HR is sustaining 150-170s. Nitro gtt is currently @ 20mcg/min. SBP 120-140. Received new order for STAT EKG that was read by ED MD Pena and reveals Afib with RVR. Dr. Bravo ordered the following: Lasix 80mg IV NOW x 1 dose, give Digoxin 0.25mg IV NOW x 1 dose, STOP Nitro gtt, start Nipride gtt (keep SBP around 110), give Amio bolus, start Amio maintenance after bolus, and hook pt up to ZOLL. All orders faxed to pharmacy. 1735: Lasix 80 IV given. Digoxin 0.25mg IV given 1741: Amio bolus started (150mg over 10min) 1748: Nipride gtt started @ 1 mcg/kg/min (27mL/hr) 1751: Amio maintenance gtt started @ 1mg/min (33mL/hr) 1755: BP 87/45. Nipride gtt decreased to 0.5mcg/kg/min (13.1mL/hr) 1800: BP 120/66. Nipride gtt increased to 0.6mcg/kg/min (15.7mL/hr) 1810: BP 110/69 1815: Dr. Bravo updated by phone. He ordered to call cathlab team in for balloon pump insertion. Notified boardinghouse keeper (Bonnie Baker RN).
--- NOTE | 2021-02-06 17:09 | ECG_ITS ---
APPROVED REPORT Exam: Resting ECG HR:174 bpm ECG Measurements Heart Rate 174 AXES QRSd 76 QRS 7 QT 278 T 133 QTc 473 Conclusion Atrial fibrillation with rapid ventricular response Septal infarct, age undetermined T wave abnormality, consider lateral ischemia or electrolyte disturbance Abnormal ECG Electronically signed by : Ernesto Peacock, 02/08/2021 11:38:19
--- NOTE | 2021-02-06 19:12 | PC.NURSE ---
1844: called son (Edil [phone]) to receive verbal consent by phone for cathlab procedure. He agreed and gave verbal consent. power plant operators supervisor (Roro Baker RN) was the 2nd RN witness. Son asked that Dr. Bravo call him prior to the procedure. Called Dr. Bravo and gave him son's name and number. [facility], greenhouse or nursery transplanter (Roro Baker RN), Luis Lara RN, and Emelia Thomas. Pt hooked to Zoll the entire time. Amio gtt and Nipride gtts infusing. Pt A&O. [facility], updated Christopher Parra and Toon Sadler that son would like to speak to Dr. Bravo. Left chart in cathlab with pt. Gave report to Lucía Philip RN @ 1909.
--- NOTE | 2021-02-06 20:08 | PC.NURSE ---
Pt back from blood bank laboratory technologist per Tarah Philip RN and Renee Pastor RN
--- NOTE | 2021-02-06 20:30 | PC.NURSE ---
Patient started on heparin gtt at 1200 units/hr per cathlab staff and Dr. Bravo. PTT ordered for baseline and 6 hours after per protocol. Pharmacist at [facility] contacted and stated 1200 units/hr was appropriate to start and would follow PTT results for any needed adjustments.
--- NOTE | 2021-02-06 20:49 | HMH.HP ---
*Admission Date: 02/06/21 *Chief complaint: cardiomyopathy,atrial fibrillation,pleural effusion *History of present illness: Patient is a 60-year-old white female who was admitted earlier today from the emergency department. She is recently back from the [facility], groggy from anesthesia, so history is obtained from ER physician. Patient is status post a right ankle fracture. She underwent two procedures here, was subsequently transferred to [facility]. Her course there was characterized by postoperative hypoxic failure, possible aspiration, atrial fibrillation. Patient presented to the ER earlier today with chest pain and dyspnea. Her initial work-up showed a large pleural effusion on the left, elevated troponin. Patient was initially taken to the Api Architect where she was found to have a diminished EF, elevated LVEDP. Findings were thought to represent a Takotsubo cardiomyopathy. Patient was also taken for thoracentesis. Approximately 1400 cc of straw-colored fluid was taken from the left chest. Patient subsequently developed a tachyarrhythmia, atrial fib flutter RVR. Patient was then subsequently taken to the Api Architect for a balloon pump insertion. After arrival to the floor she has been clinically improving. [facility] History Medical History: Reports:: Atrial Fibrillation, Chronic Obstructive Pulmonary Disease (COPD), Diabetes Mellitus Type 2, Hyperlipidemia, Hypertension Denies:: Cancer, Diabetes Mellitus Type 1, Internal Pacemaker, MRSA, Seizures *Have you ever received a pneumonia vaccine?: No *Have you received a flu vaccine this season?: No Other Medical History: Denies: Blood Transfusion Reaction Other Surgeries: Yes: Hysterectomy-Total, Other. No: Pacemaker Amputation: No Fractures: Yes - *Social History Smoking Status: Current every day smoker Tobacco Type: cigarettes # Packs/Day (cigarettes): 1 Alcohol Intake: never Substance Use Type: denies use *Occupational Status:: employed Housing: house *Travel in the last 8 weeks: None Family Hx:: Diabetes, Hyperlipidemia Review of Systems - Review of Systems Review of systems:: unable to obtain - *Neurologic Reports abnormal walking (due to RLE injury), Reports weakness Meds Home Medications Medication Instructions Recorded Confirmed Type Atorvastatin Calcium [Lipitor 10mg 10 mg PO HS 01/04/21 02/06/21 History Tablet*] Gabapentin [Gabapentin 300mg Cap] 100 mg PO TID 01/04/21 02/06/21 History Losartan/Hydrochlorothiazide 1 tab PO DAILY 01/04/21 02/06/21 History [Losartan-Hctz 100-25 mg Tab] Oxycodone HCl/Acetaminophen 1 each PO Q6H PRN #20 tab 01/04/21 02/06/21 Rx [Oxycodone-Acetaminophen 5-325] Potassium Chloride 10 meq PO DAILY 01/04/21 02/06/21 History Acetaminophen 500 mg PO Q6H PRN 02/06/21 02/06/21 History Duloxetine HCl 60 mg PO DAILY 02/06/21 02/06/21 History Ibuprofen 400 mg PO Q6H PRN 02/06/21 02/06/21 History Lansoprazole 30 mg PO DAILY 02/06/21 02/06/21 History Metaxalone 800 mg PO Q6H 02/06/21 02/06/21 History Sennosides/Docusate Sodium 1 each PO BID 02/06/21 02/06/21 History [Senexon-S 50-8.6 mg Tablet] Tiotropium [place] [Spiriva 4 gm IH DAILY 02/06/21 02/06/21 History Respimat] methocarbamoL [Methocarbamol] 750 mg PO Q6H PRN 02/06/21 02/06/21 History Allergies Allergy/AdvReac Type Severity Reaction Status Date / Time Sulfa (Sulfonamide Allergy Intermediate Rash Verified 02/06/21 13:19 Antibiotics) ceftriaxone [From Rocephin] Allergy Verified 02/06/21 08:21 Penicillins Allergy Verified 01/13/21 17:30 Exam Vital signs and Labs for Last 24 Hours: Temp Pulse Resp BP Pulse Ox 97.9 F 166 H 44 H 110/66 90 L 02/06/21 13:47 02/06/21 18:30 02/06/21 18:30 02/06/21 18:30 02/06/21 18:30 Laboratory Results - last 24 hr 02/06/21 08:11: Specimen Source Left radial, O2 % 5 lpm nc, ABG pH 7.50 H, ABG pCO2 28.7 L, ABG pO2 105.6 H, ABG HCO3 21.9 L, ABG Total CO2 22.8 L, ABG O2 Saturation 98, ABG Base Excess
[2021-02-06 21:08] LABS: Activated Partial Thrombo Time 75.2 seconds (22.8-30.6)
[2021-02-06 21:14] LABS: POC Glucose,Bedside 185 (70-110)
--- NOTE | 2021-02-06 22:09 | PC.NURSE ---
received call from dr. phipps for patient update. discussed rhythm changes, heart rate, blood pressure, urine output. new order received and faxed to pharmacy.
[2021-02-07] VITALS (58 sets, daily range): BP systolic 97–159; BP diastolic 54–90; PULSE 71–123; RESP 13–23; TEMP 36.4–36.9; O2SAT 82–105
--- NOTE | 2021-02-07 00:08 | PC.NURSE ---
dr. phipps notified of decreased urine output, no new orders received at this time.
--- NOTE | 2021-02-07 00:19 | PC.NURSE ---
2030 heparin dosage, documentation, pharmacy consult and ordering of ptts done by sofiya powerhouse oiler.
--- NOTE | 2021-02-07 00:52 | PC.NURSE ---
0000 amiodarone drip decreased to .5 mg/hr per protocol
--- NOTE | 2021-02-07 02:28 | PC.NURSE ---
2030 assessment complete, sheath site for balloon pump clean,dry and intact. all cap refills <3, all pulses including left radial and right pedal + 2. balloon pump frequency 1:1
[2021-02-07 02:32] LABS: Activated Partial Thrombo Time 39.1 seconds (22.8-30.6)
--- NOTE | 2021-02-07 02:39 | PC.NURSE ---
pharmacy called regarding ptt results, order received to increase to 1600 units and hour and repeat ptt in 6 hrs.
[2021-02-07 05:46] LABS: POC Glucose,Bedside 149 (70-110)
[2021-02-07 06:33] LABS: Basophils % 0.1 % (0.1-2.0); Eosinophils % 0.1 % (0.1-12.0); Hematocrit 32.8 % (37.0-47.0); Hemoglobin 10.5 g/dL (12.2-16.2); Lymphocytes # 1.5 K/mm3 (0.7-4.5); Lymphocytes % 11.2 % (10-50); Mean Corpuscular Hemoglobin 27.5 pg (27.0-31.2); Mean Platelet Volume 8.3 fl (7.4-10.4); Monocytes # 0.8 K/mm3 (0.1-1.0); Monocytes % 5.7 % (1.7-9.3); Neutrophils # 11.4 K/mm3 (1.8-7.8); Neutrophils % 82.9 % (37.0-80.0); Platelet Count 663 K/mm3 (142-424); Red Blood Count 3.81 M/mm3 (4.20-5.40); Red Cell Distribution Width 14.5 % (11.5-17.5); White Blood Count 13.8 K/mm3 (4.8-10.8)
--- NOTE | 2021-02-07 06:35 | XR_ITS ---
PROCEDURE: XR CHEST PORTABLE CLINICAL HISTORY: balloon pump placement COMPARISON: CR XR CHEST PORTABLE from 02/06/2021 CR XR CHEST PORTABLE from 02/06/2021 FINDINGS: The presence of artifact over the left hemithorax slightly limits evaluation. The cardiomediastinal silhouette and pulmonary vascularity are within normal limits. Small to moderate left effusion with adjacent compressive atelectasis, unchanged compared to the most recent prior study. No lobar consolidation or pneumothorax. Mild cardiomegaly is noted. IMPRESSION: No significant interval change within the limitations of the study. Dictated by: Mireille Tomlin 02/07/2021 11:15 Mireille Tomlin in OV 02/07/2021 11:15
[2021-02-07 06:51] LABS: Anion Gap 7.4 mEq/L (5-15); Blood Urea Nitrogen 16 mg/dl (7-17); Calcium 8.7 mg/dl (8.4-10.2); Carbon Dioxide 35 mmol/L (22.0-30.0); Chloride 95 mmol/L (98-107); Creatinine Clearance Estimated 91 mL/min (50-200); Estimated Glomerular Filt Rate 64 ml/min (>60); GFR (African American) 77 ML/MIN (>60); Glucose 146 mg/dl (74-100); Potassium 3.4 mmoL/L (3.5-5.1); Sodium 134 mmol/L (136-145)
--- NOTE | 2021-02-07 06:54 | PC.NURSE ---
received call from dr. phipps for patient status update. vitals signs, heart rhythm and urine output discussed. new orders received.
[2021-02-07 07:22] LABS: ABG Base Excess 3.4 mmol/L (-2.4-2.3); ABG HCO3 26.7 mmhg (22.0-26.0); ABG Oxygen Saturation 90 % (90-100); ABG PCO2 35.4 mmhg (35.0-45.0); ABG PO2 56.5 mmhg (80-100); ABG TCO2 27.8 mmhg (23-27)
--- NOTE | 2021-02-07 09:16 | HMH.PNCARD ---
Subjective Date: 02/07/21 Time: 09:16 Principal diagnosis: Cardiogenic shock, Takotsubo cardiomyopathy Interval history: 60-year-old white female lying in bed with complaint of back pain and right leg pain. Balloon pump continues at one-to-one ratio. Systolic blood pressure 120-140 bpm with pulse rate 110 to 130 bpm. Patient denies any recent loss of family member. The most stressful event was the ankle injury and subsequent hospitalization/surgery at recently. Discussed with Dr. Bravo this morning who contacted [facility] for transfer. Patient has tentatively been accepted. Exam Vital signs and Labs for Last 24 Hours: Temp Pulse Resp BP Pulse Ox 98.5 F 105 H 16 145/90 H 94 L 02/07/21 08:00 02/07/21 08:00 02/07/21 08:00 02/07/21 08:00 02/07/21 08:00 Laboratory Results - last 24 hr 02/06/21 08:12: NT-Pro-B Natriuret Pep 6140 H 02/06/21 09:32: Urine Color Yellow, Urine Appearance Clear, Urine pH 6.5, Ur Specific [place] 1.025, Urine Protein 1+, Urine Glucose (UA) Negative, Urine Ketones 2+, Urine Blood Trace-i, Urine Nitrate Negative, Urine Bilirubin Negative, Urine Urobilinogen 0.2, Ur Leukocyte Esterase Negative, Urine RBC 3-5, Urine WBC 3-5, Ur Squamous Epith Cells Occasional, Urine Bacteria None 02/06/21 11:59: Specimen Source A line, O2 % 100, ABG pH 7.36, ABG pCO2 44.7, ABG pO2 63.3 L, ABG HCO3 24.7, ABG Total CO2 26.1, ABG O2 Saturation 91, ABG Base Excess -0.8, Luis Miguel Test N 02/06/21 12:53: Fluid Source Pleural fluid, Fluid Volume 62, Fluid Appearance Hazy, Fluid RBC (Auto) < 10, Fld Tot Nucleated Cell 1065, Fld Polynuclear WBCs % 22, Fld Mononuclear WBCs % 78 02/06/21 14:50: Lactate 1.0 02/06/21 14:50: Sodium 136, Potassium 3.4 L D, Chloride 96 L, Carbon Dioxide 30 D, Anion Gap 13.4, BUN 9, Creatinine 0.70, Estimated Creat Clear 118, Estimated GFR 85, Est GFR ( Amer) 103, Glucose 177 H D, Calcium 9.2, Total Bilirubin 0.6, AST 42 H, ALT 28, Alkaline Phosphatase 209 H, Lactate Dehydrogenase 236 L, Total Protein 7.5, Albumin 3.9, Globulin 3.6 H, Albumin/Globulin Ratio 1.1 02/06/21 16:27: POC Glucose 164 H 02/06/21 19:25: Specimen Source a line, O2 % 4lpm, ABG pH 7.50 H, ABG pCO2 35.4, ABG pO2 56.5 L, ABG HCO3 26.7 H, ABG Total CO2 27.8 H, ABG O2 Saturation 90, ABG Base Excess 3.4 H 02/06/21 20:25: APTT 75.2 H* D 02/06/21 21:05: POC Glucose 185 H 02/07/21 02:03: APTT 39.1 H D 02/07/21 05:31: POC Glucose 149 H 02/07/21 05:34: WBC 13.8 H, RBC 3.81 L, Hgb 10.5 L, Hct 32.8 L, MCV 86.0, MCH 27.5, MCHC 32.0, RDW 14.5, Plt Count 663 H, MPV 8.3, Neut % (Auto) 82.9 H, Lymph % (Auto) 11.2, [place] % (Auto) 5.7, Eos % (Auto) 0.1, Baso % (Auto) 0.1, Neut # (Auto) 11.4 H, Lymph # (Auto) 1.5, [place] # (Auto) 0.8, Eos # (Auto) 0.0, Baso # (Auto) 0.0 02/07/21 05:34: Sodium 134 L, Potassium 3.4 L, Chloride 95 L, Carbon Dioxide 35 H, Anion Gap 7.4, BUN 16 D, Creatinine 0.90 D, Estimated Creat Clear 91, Estimated GFR 64, Est GFR ( Amer) 77 D, Glucose 146 H, Calcium 8.7 I & O for Last 24 hours: Intake & Output 02/04/21 02/05/21 02/06/21 02/07/21 11:59 11:59 11:59 11:59 Intake Total 435 / 435 Output Total 4510 / 4510 Balance -4075 / -4075 Weight 200 lb 192 lb 3 oz Microbiology Reports for the Last 24 Hours: Microbiology 02/06/21 12:53 Thoracic Fluid Gram Stain - Final 02/06/21 08:30 Nasopharyngeal Coronavirus COVID-19 PCR - Final - *Routine Respiratory Exam Present: CTA bilaterally - *Routine Cardiovascular Exam Present: tachycardia, irregularly irregular - *Routine Extremities Exam Absent: cyanosis, clubbing, edema Progress Note: A&P (1) SOB (shortness of breath) Status: Acute (2) Paroxysmal atrial fibrillation Status: Acute (3) Sinus tachycardia Status: Acute (4) HTN (hypertension) Status: Acute (5) HLD (hyperlipidemia) Status: Acute (6) Foot injury Status: Acute (7) Recent surgical procedure on lower extremity Status: Acute (8) Ple
--- NOTE | 2021-02-07 09:25 | HMH.PHAHEP ---
[facility] Pharmacy Heparin Dosing - Demographic Data Admission date:: 02/06/21 Date: 02/07/21 Time: 09:25 Allergies/Adverse Reactions: Allergies Allergy/AdvReac Type Severity Reaction Status Date / Time Sulfa (Sulfonamide Allergy Intermediate Rash Verified 02/06/21 13:19 Antibiotics) ceftriaxone [From Rocephin] Allergy Verified 02/06/21 08:21 Penicillins Allergy Verified 01/13/21 17:30 Height: 1.63 m Weight: 87.2 kg - Indication Medication therapy:: Heparin Patient Problems: Current Active Problems Respiratory failure with hypoxia (Acute) Elevated troponin (Acute) Recurrent left pleural effusion (Acute) Chest pain (Acute) SOB (shortness of breath) (Acute) Atypical angina (Acute) Paroxysmal atrial fibrillation (Acute) Sinus tachycardia (Acute) HTN (hypertension) (Acute) HLD (hyperlipidemia) (Acute) Foot injury (Acute) Recent surgical procedure on lower extremity (Acute) Elevated troponin (Acute) Pleural effusion (Acute) Cardiomyopathy (Acute) Takotsubo cardiomyopathy (Acute) Cardiogenic shock (Acute) CVA?: No Bleeding problem?: No Kidney disease?: No SD?: No Desired PTT range:: 50-70 seconds Comments:: 50-75 - Labs Anticoagulation Lab Results:: 02/07/21 05:34 Hgb 10.5 L Hct 32.8 L Plt Count 663 H - Monitoring Dose Monitor 1 Date: 02/06/21 Time: 20:25 PTT Result:: 75.2 Infusion Rate:: PATIENT RECEIVED A BOLUS OF 3000 UNITS AND 5000 UNITS. HEPARIN DRIP STARTED AT 24 ML/HR (1200 UNITS/HR). Dose Monitor 2 Date: 02/07/21 Time: 02:03 PTT Result:: 39.1 Infusion Rate:: INCREASE RATE TO 32 ML/HR (1600 UNITS/HR) Dose Monitor 3 Date: 02/07/21 Time: 09:00 PTT Result:: 44.9 Infusion Rate:: RECOMMENDED GIVING ADDITIONAL BOLUS OF HEPARIN 3000 UNITS AND INCREASE DRIP RATE TO 35 ML/HR (1750 UNITS/HR). RECHECK IN 6 HOURS. Dose Monitor 4 Date: 02/07/21 Time: 16:00 PTT Result:: 76.9 Infusion Rate:: DECREASED DOSE OF HEPARIN TO 1650 UNITS/HR (33 ML/HR). Dose Monitor 5 Date: 02/07/21 Time: 22:00 - Core Measures Is INR > or = 2 at discharge?: No Most Recent Labs:: Laboratory Results - last 24 hr 02/06/21 08:12: NT-Pro-B Natriuret Pep 6140 H 02/06/21 09:32: Urine Color Yellow, Urine Appearance Clear, Urine pH 6.5, Ur Specific [place] 1.025, Urine Protein 1+, Urine Glucose (UA) Negative, Urine Ketones 2+, Urine Blood Trace-i, Urine Nitrate Negative, Urine Bilirubin Negative, Urine Urobilinogen 0.2, Ur Leukocyte Esterase Negative, Urine RBC 3-5, Urine WBC 3-5, Ur Squamous Epith Cells Occasional, Urine Bacteria None 02/06/21 11:59: Specimen Source A line, O2 % 100, ABG pH 7.36, ABG pCO2 44.7, ABG pO2 63.3 L, ABG HCO3 24.7, ABG Total CO2 26.1, ABG O2 Saturation 91, ABG Base Excess -0.8, Luis Miguel Test N 02/06/21 12:53: Fluid Source Pleural fluid, Fluid Volume 62, Fluid Appearance Hazy, Fluid RBC (Auto) < 10, Fld Tot Nucleated Cell 1065, Fld Polynuclear WBCs % 22, Fld Mononuclear WBCs % 78 02/06/21 14:50: Lactate 1.0 02/06/21 14:50: Sodium 136, Potassium 3.4 L D, Chloride 96 L, Carbon Dioxide 30 D, Anion Gap 13.4, BUN 9, Creatinine 0.70, Estimated Creat Clear 118, Estimated GFR 85, Est GFR ( Amer) 103, Glucose 177 H D, Calcium 9.2, Total Bilirubin 0.6, AST 42 H, ALT 28, Alkaline Phosphatase 209 H, Lactate Dehydrogenase 236 L, Total Protein 7.5, Albumin 3.9, Globulin 3.6 H, Albumin/Globulin Ratio 1.1 02/06/21 16:27: POC Glucose 164 H 02/06/21 19:25: Specimen Source a line, O2 % 4lpm, ABG pH 7.50 H, ABG pCO2 35.4, ABG pO2 56.5 L, ABG HCO3 26.7 H, ABG Total CO2 27.8 H, ABG O2 Saturation 90, ABG Base Excess 3.4 H 02/06/21 20:25: APTT 75.2 H* D 02/06/21 21:05: POC Glucose 185 H 02/07/21 02:03: APTT 39.1 H D 02/07/21 05:31: POC Glucose 149 H 02/07/21 05:34: WBC 13.8 H, RBC 3.81 L, Hgb 10.5 L, Hct 32.8 L, MCV 86.0, MCH 27.5, MCHC 32.0, RDW 14.5, Plt Count 663 H, MPV 8.3, Neut % (Auto) 82.9 H, Lymph % (Auto) 11.2, [place] % (Auto) 5.7, Eos % (Auto) 0.1
[2021-02-07 09:41] LABS: Activated Partial Thrombo Time 44.9 seconds (22.8-30.6)
--- NOTE | 2021-02-07 09:47 | HMH.PULMCON ---
*Admission Date: 02/06/21 *Reason for consult:: Acute hypoxic respiratory failure *History of present illness: Ms. Dowd is a 60-year-old female greater than [id number] smoking history using inhalers on an as-needed basis not on any home oxygen therapy was presented to hospital with worsening respiratory failure along with chest discomfort and hypertension pulmonary was called for further management.. [facility] History Medical History: Reports:: Atrial Fibrillation, Chronic Obstructive Pulmonary Disease (COPD), Diabetes Mellitus Type 2, Hyperlipidemia, Hypertension Denies:: Cancer, Diabetes Mellitus Type 1, Internal Pacemaker, MRSA, Seizures *Have you ever received a pneumonia vaccine?: No *Have you received a flu vaccine this season?: No Other Medical History: Denies: Blood Transfusion Reaction Other Surgeries: Yes: Hysterectomy-Total, Other. No: Pacemaker Amputation: No Fractures: Yes - *Social History Smoking Status: Current every day smoker Tobacco Type: cigarettes # Packs/Day (cigarettes): 1 Alcohol Intake: never Substance Use Type: denies use *Occupational Status:: employed Housing: house *Travel in the last 8 weeks: None Family Hx:: Diabetes, Hyperlipidemia ROS - Cons Reports body ache(s) - Card Reports chest pain at rest, Reports shortness of breath with activity - Resp Respiratory: Reports chest congestion, Denies cough, Denies excessive phlegm production, Denies coughing up blood - GI Gastrointestingal: Denies: dysphagia - [place] Musculoskeletal: Denies decreased muscle mass Meds Home Medications Medication Instructions Recorded Confirmed Type Atorvastatin Calcium [Lipitor 10mg 10 mg PO HS 01/04/21 02/06/21 History Tablet*] Gabapentin [Gabapentin 300mg Cap] 100 mg PO TID 01/04/21 02/06/21 History Losartan/Hydrochlorothiazide 1 tab PO DAILY 01/04/21 02/06/21 History [Losartan-Hctz 100-25 mg Tab] Oxycodone HCl/Acetaminophen 1 each PO Q6H PRN #20 tab 01/04/21 02/06/21 Rx [Oxycodone-Acetaminophen 5-325] Potassium Chloride 10 meq PO DAILY 01/04/21 02/06/21 History Acetaminophen 500 mg PO Q6H PRN 02/06/21 02/06/21 History Duloxetine HCl 60 mg PO DAILY 02/06/21 02/06/21 History Ibuprofen 400 mg PO Q6H PRN 02/06/21 02/06/21 History Lansoprazole 30 mg PO DAILY 02/06/21 02/06/21 History Metaxalone 800 mg PO Q6H 02/06/21 02/06/21 History Sennosides/Docusate Sodium 1 each PO BID 02/06/21 02/06/21 History [Senexon-S 50-8.6 mg Tablet] Tiotropium [place] [Spiriva 4 gm IH DAILY 02/06/21 02/06/21 History Respimat] methocarbamoL [Methocarbamol] 750 mg PO Q6H PRN 02/06/21 02/06/21 History Allergies Allergy/AdvReac Type Severity Reaction Status Date / Time Sulfa (Sulfonamide Allergy Intermediate Rash Verified 02/06/21 13:19 Antibiotics) ceftriaxone [From Rocephin] Allergy Verified 02/06/21 08:21 Penicillins Allergy Verified 01/13/21 17:30 Exam - Constitutional Constitutional:: Present: no acute distress, comfortable - HENMT Exam HENMT: Present: normocephalic, atraumatic - Eye Exam Eyes:: Present: normal appearance both eyes and related structures - Neck Exam Neck:: Present: thyroid normal - Respiratory Exam Respiratory:: Present: able to speak in complete sentences, no respiratory distress, normal respiratory effort, crackles. Absent: accessory muscle use, wheezing - Cardiovascular Exam Cardiac:: Present: S1, S2 - GI Exam GI:: Present: soft, no hepatosplenomegaly, normoactive bowel sounds, no tenderness. Absent: rebound, guarding - Skin Exam Skin: Present: no rash - Neurological Exam Neurological: Present: alert, awake - Extremities Exam Extremities: Present: no cyanosis, no clubbing, edema Comments: Right ankle brace in place - Psychiatric Exam Psychiatric: Present: normal affect Internal Medicine - CN: Reslt - Labs CBC & Chem 7: 02/07/21 05:34 02/07/21 05:34 Labs: Short CBC 02/07/21 Range/Units 05:34 WBC 13.8 H (4.8-10.8) K/mm
--- NOTE | 2021-02-07 10:15 | PC.NURSE ---
Addendum entered by Suzanne Leblanc RN 02/07/21 16:24: 1624 - Heparin gtt decreased to 1650 units/hr per Himanshu Vincent Original Note: 1003 - Heparin gtt increased to 1750 units/hr per Adalberto Queen
--- NOTE | 2021-02-07 11:29 | HMH.PHAINT ---
MEDICATION RECONCILIATION COMPLETED ON PATIENT USING EXTERNAL FILL HISTORY FROM PHARMACY AND JOVANNI REPORT. -ROBERT DOWNSD
--- NOTE | 2021-02-07 11:38 | PC.NURSE ---
Addendum entered by Suzanne Leblanc RN 02/07/21 17:57: 1750 - Spoke juan josé/ Lizbet @ , no bed available @ this time Addendum entered by Suzanne Leblanc RN 02/07/21 15:08: H GEM Jauregui spoke w/ [facility] @ 1430, no bed available @ this time. Original Note: Spoke juan josé/ Neli @ [facility], no bed available @ this time.
[2021-02-07 11:54] LABS: POC Glucose,Bedside 135 (70-110)
[2021-02-07 16:19] LABS: Activated Partial Thrombo Time 76.9 seconds (22.8-30.6)
[2021-02-07 16:59] LABS: POC Glucose,Bedside 132 (70-110)
--- NOTE | 2021-02-07 17:28 | PC.NURSE ---
No acute changes. Remains on 4 L O2 per nasal cannula. Denies being SOA. Pt has been sinus/A-fib throughout shift. IABP site c/d/i. Cap refill <3 sec. Pulses +2 in all 4 ext. IABP remains 1:1. Abdomen soft, non-tender w/ actve BS in all quads. Hawkins cath to drain @ bedside w/ clear yellow urine noted. UOP adequate. Pt medicated per MAR for pain in back and BLE. Remains flat. Pt positioned to best ability for comfort. Call daniels w/in reach. No needs voiced @ this time.
--- NOTE | 2021-02-07 18:32 | PC.NURSE ---
[facility] called @ this time, states this pt will have a bed available later tonight.
--- NOTE | 2021-02-07 19:21 | HMH.DCSUM ---
General - General Admission date:: 02/06/21 Discharge date: 02/07/21 HPI HPI: Patient is a 60-year-old white female who was admitted earlier today from the emergency department. She is recently back from the [facility], varun from anesthesia, so history is obtained from ER physician. Patient is status post a right ankle fracture. She underwent two procedures here, was subsequently transferred to [facility]. Her course there was characterized by postoperative hypoxic failure, possible aspiration, atrial fibrillation. Patient presented to the ER earlier today with chest pain and dyspnea. Her initial work-up showed a large pleural effusion on the left, elevated troponin. Patient was initially taken to the [facility] Techn[facility] where she was found to have a diminished EF, elevated LVEDP. Findings were thought to represent a Takotsubo cardiomyopathy. Patient was also taken for thoracentesis. Approximately 1400 cc of straw-colored fluid was taken from the left chest. Patient subsequently developed a tachyarrhythmia, atrial fib flutter RVR. Patient was then subsequently taken to the Orthotic [facility] Gr[facility] Technician for a balloon pump insertion. After arrival to the floor she has been clinically improving. Hospital Course Hospital Course: Laboratory Tests 02/06/21 02/06/21 02/06/21 08:11 08:12 08:12 WBC RBC Hgb Hct MCV MCH MCHC RDW Plt Count MPV Neut % (Auto) Lymph % (Auto) [place] % (Auto) Eos % (Auto) Baso % (Auto) Neut # (Auto) Lymph # (Auto) [place] # (Auto) Eos # (Auto) Baso # (Auto) APTT Specimen Source Left radial O2 % 5 lpm nc ABG pH 7.50 H ABG pCO2 28.7 L ABG pO2 105.6 H ABG HCO3 21.9 L ABG Total CO2 22.8 L ABG O2 Saturation 98 ABG Base Excess -1.3 Luis Miguel Test Acceptable Sodium 134 L Potassium 4.4 Chloride 99 Carbon Dioxide 23 Anion Gap 16.4 H BUN 9 Creatinine 0.70 Estimated Creat Clear 122 Estimated GFR 85 Est GFR ( Amer) 103 Glucose 254 H POC Glucose Lactate 4.8 H Calcium 9.3 Total Bilirubin 0.8 AST 50 H ALT 32 Alkaline Phosphatase 193 H Lactate Dehydrogenase Troponin I 1.30 H NT-Pro-B Natriuret Pep Total Protein 7.3 Albumin 3.8 Globulin 3.5 H Albumin/Globulin Ratio 1.1 Urine Color Urine Appearance Urine pH Ur Specific [place] Urine Protein Urine Glucose (UA) Urine Ketones Urine Blood Urine Nitrate Urine Bilirubin Urine Urobilinogen Ur Leukocyte Esterase Urine RBC Urine WBC Ur Squamous Epith Cells Urine Bacteria Fluid Source Fluid Volume Fluid Appearance Fluid RBC (Auto) Fld Tot Nucleated Cell Fld Polynuclear WBCs % Fld Mononuclear WBCs % 02/06/21 02/06/21 02/06/21 08:12 08:12 09:32 WBC 13.3 H RBC 3.80 L Hgb 10.4 L Hct 33.4 L MCV 87.9 MCH 27.3 MCHC 31.1 L RDW 14.2 Plt Count 829 H MPV 7.9 Neut % (Auto) 83.5 H Lymph % (Auto) 10.2 [place] % (Auto) 3.9 Eos % (Auto) 1.7 Baso % (Auto) 0.8 Neut # (Auto) 11.1 H Lymph # (Auto) 1.4 [place] # (Auto) 0.5 Eos # (Auto) 0.2 Baso # (Auto) 0.1 APTT Specimen Source O2 % ABG pH ABG pCO2 ABG pO2 ABG HCO3 ABG Total CO2 ABG O2 Saturation ABG Base Excess Luis Miguel Test Sodium Potassium Chloride Carbon Dioxide Anion Gap BUN Creatinine Estimated Creat Clear Estimated GFR Est GFR ( Amer) Glucose POC Glucose Lactate Calcium Total Bilirubin AST ALT Alkaline Phosphatase Lactate Dehydrogenase Troponin I NT-Pro-B Natriuret Pep 6140 H Total Protein Albumin Globulin Albumin/Globulin Ratio Urine Color Yellow Urine Appearance Clear Urine pH 6.5 Ur Specific [place] 1.025 Urine Protein 1+ Urine Glucose (UA) Negative
[2021-02-07 20:47] LABS: POC Glucose,Bedside 119 (70-110)
[2021-02-07 22:32] LABS: Activated Partial Thrombo Time 60.6 seconds (22.8-30.6)
--- NOTE | 2021-02-07 22:36 | PC.NURSE ---
received call from [facility] pharmacist regarding heparin drip. no change needed to infusion and repeat ptt in 6 hrs.
--- NOTE | 2021-02-07 23:09 | PC.NURSE ---
[facility] called for status update on bed. this rn notified that we will be receiving a call shortly.
--- NOTE | 2021-02-07 23:44 | PC.NURSE ---
2312 received bed from . 10 th floor, tower 1, bed 137
--- NOTE | 2021-02-07 23:44 | PC.NURSE ---
2330 report called to maurice schmidt rn, awaiting cleaning of room before notifying [employer] [facility]
[2021-02-08] VITALS: BP 125/91; PULSE 106; PULSE 125; RESP 14; TEMP 36.6; O2SAT 98
--- NOTE | 2021-02-08 00:14 | PC.NURSE ---
[employer] notified by warehouse shift supervisor, belonging packed up. iabp puncture site clean dry and intact. all pulses +2 including right pedal and left brachial and radial.
--- NOTE | 2021-02-08 00:47 | PC.NURSE ---
received call from [employer], 20 min eta patient's son salvador notified of location and room number at [facility]
[2021-02-08 01:00] VITALS: BP 106/80; PULSE 121; RESP 15; O2SAT 95
[2021-02-08 01:04] VITALS: PULSE 114; O2SAT 98
--- NOTE | 2021-02-08 02:23 | PC.NURSE ---
0120 flight crew at bedside loading patient.
--- NOTE | 2021-02-08 02:23 | PC.NURSE ---
[address] phipps for status report.
--- NOTE | 2021-02-08 02:37 | PC.NURSE ---
0215 patient leaving floor with rn and flight crew. iabp switched out to flight portable balloon pump
--- NOTE | 2021-02-08 04:05 | PC.NURSE ---
records sent to , packet not delivered per flight team.
[2021-02-09 10:35] LABS: Albumin, Body Fluid 2.3 g/dL (Not Estab.); Glucose, Body Fluid 130 mg/dL (.); Protein, Body Fluid 4.2 g/dL (.)
[2021-02-09 10:36] LABS: LD, Body Fluid 256 IU/L (.)
[2021-02-10 12:34] LABS: pH, Body Fluid 7.8 (Not Estab.)
== END 2021-02-08 02:15 | disposition short-term general hospital (02) | DRG 270 ==
LOC: ER 09:39 → 2ND 09:58
PROVIDERS: Internal Medicine; Internal Medicine Pulmonary Disease; Admitting Provider Family Medicine; Emergency Provider Emergency Medicine; PCP Internal Medicine; Visit Provider Family Medicine
PROC: 4A023N7 Measurement of Cardiac Sampling and Pressure, Left Heart, Percutaneous Approach (ICD-10-PCS; principal; 2021-02-06 06:45)
DX: J96.00 Acute respiratory failure, unspecified whether with hypoxia or hypercapnia (principal); R57.0 Cardiogenic shock; I21.09 ST elevation (STEMI) myocardial infarction involving other coronary artery of anterior wall; I50.21 Acute systolic (congestive) heart failure; I51.81 Takotsubo syndrome; Z20.822 Contact with and (suspected) exposure to COVID-19; I25.119 Atherosclerotic heart disease of native coronary artery with unspecified angina pectoris; I48.0 Paroxysmal atrial fibrillation; Z88.1 Allergy status to other antibiotic agents; Z88.0 Allergy status to penicillin; J44.9 Chronic obstructive pulmonary disease, unspecified; E78.5 Hyperlipidemia, unspecified; F17.210 Nicotine dependence, cigarettes, uncomplicated; I11.0 Hypertensive heart disease with heart failure; Z88.2 Allergy status to sulfonamides
CPT/HCPCS: 32554; 32555; 33967; 36415; 71045; 80048; 80053; 81001; 82042; 82803; 82945; 82962; 83605; 83615; 83880; 83986; 84155; 84484; 85025; 85730; 87040; 87070; 87081; 87205; 89051; 93005; 93308; 93458; 94640; 94761; 99152; 99153; 99284; C1725; C1760; C1769; C1894; J0282; J1644; J1956; J2405; J7060; Q9967; U0003